=== PATIENT | male | born 1980 | race Hispanic/Latino ===

== ENCOUNTER 2018-10-21 19:11 | Emergency (ER) | payer SELFPAY ==
[2018-10-21] MEDS ORDERED: Catapres 0.1 MG PO ONE (20:10)
[2018-10-21] MEDS ORDERED: Catapres 0.1 MG ONE (20:16)
[2018-10-21] MEDS ORDERED: LASIX 20 MG ONE (20:20)
[2018-10-21 20:33] VITALS: BP 168/101; O2SAT 98
--- NOTE | 2018-10-21 20:43 | ERPHSYRPT ---
- History of Present Illness Time Seen by Provider: 10/21/18 19:30 Source: patient Exam Limitations: language barrier Patient Subjective Stated Complaint: pt is alert and oriented. pt is ambulatory with a steady gait. pt comes in with bilat lower leg swelling for 1 week. pt has moderate swelling of the bilat lower legs. pt had labs earlier today and had an abnormal BUN and Creat. pt speaks only japanese, Dr. Andrews translating for me. Triage Nursing Assessment: see above Physician History: 37 y/o a[place]ij[place] national male here on a work visa presents with worsening swelling bilat lower ext. he has never had before. he is taking ampicillin for an infection. no other meds. nkda. pt has no known h/o heart or kidney dz. he denies soa, denies cp and denies abd pain. Timing/Duration: week(s) (1) Severity: moderate Associated Symptoms: denies symptoms, No nausea, No vomiting, No abdominal pain , No shortness of breath, No chest pain, No syncope, No seizure, No weakness Allergies/Adverse Reactions: No Known Drug Allergies Allergy (Verified 10/21/18 20:17) Immunizations Up to Date: Yes - Review of Systems Constitutional: No Symptoms Eyes: No Symptoms Ears, Nose, & Throat: No Symptoms Respiratory: No Symptoms Cardiac: No Symptoms Abdominal/Gastrointestinal: No Symptoms Genitourinary Symptoms: No Symptoms Musculoskeletal: Other (swelling bilat lower ext) Skin: No Symptoms Neurological: No Symptoms Psychological: No Symptoms Endocrine: No Symptoms Hematologic/Lymphatic: No Symptoms Immunological/Allergic: No Symptoms All Other Systems: Reviewed and Negative - Past Medical History Pertinent Past Medical History: Yes Neurological History: No Pertinent History ENT History: No Pertinent History Cardiac History: No Pertinent History Respiratory History: No Pertinent History Endocrine Medical History: No Pertinent History Musculoskeletal History: No Pertinent History GI Medical History: No Pertinent History History: No Pertinent History Psycho-Social History: No Pertinent History Male Reproductive Disorders: No Pertinent History - Past Surgical History Past Surgical History: No Neuro Surgical History: No Pertinent History Cardiac: No Pertinent History Respiratory: No Pertinent History Gastrointestinal: No Pertinent History Genitourinary: No Pertinent History Musculoskeletal: No Pertinent History Male Surgical History: No Pertinent History - Social History Smoking Status: Light tobacco smoker Alcohol Use: None Drug Use: none Significant Family History: no pertinent family hx - Nursing Vital Signs Nursing Vital Signs: Initial Vital Signs Pulse Rate 58 L 05/03/19 19:36 Respiratory Rate 18 10/21/18 19:36 Blood Pressure 160/102 10/21/18 19:36 O2 Sat by Pulse Oximetry 97 10/21/18 19:36 - Physical Exam General Appearance: no apparent distress, alert, anxiety Eye Exam: PERRL/EOMI Ears, Nose, Throat Exam: normal ENT inspection, moist mucous membranes Neck Exam: normal inspection, non-tender, supple, full range of motion Respiratory Exam: normal breath sounds, lungs clear, airway intact, No chest tenderness, No respiratory distress Cardiovascular Exam: regular rate/rhythm, normal heart sounds, normal peripheral pulses Gastrointestinal/Abdomen Exam: soft, normal bowel sounds, No tenderness Rectal Exam: not done Back Exam: normal inspection, normal range of motion, No CVA tenderness, No vertebral tenderness Extremity Exam: pedal edema (bilal lower ext to bilat knees), swelling, No tenderness Neurologic Exam: alert, oriented x 3, cooperative, 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 Skin Exam: normal color, warm, dry Lymphatic Exam: adenopathy SpO2 Interpretation: normal SpO2: 98 O2 Delivery: Room Air - Course Nursing assessment & vital signs reviewed: Yes Ordered Tests: Medication Summary Generic Name Dose Route Start Last Admin Trade Name Freq PRN Reason Stop Dose Admin Furosemide 20 mg 10/22/18 20:10 10/21/18 20:29 Lasix 20 Mg PO 10/22/18 20:11 20 mg STAT ONE Administration Discontinued Medications Generic Name Dose Route Start Last Admin Trade Name Freq PRN Reason Stop Dose Admin Clonidine 0.1 mg 10/21/18 20:10 10/21/18 20:29 Catapres 0.1 Mg PO 10/21/18 20:11 0.1 mg STAT ONE Administration Clonidine Confirm 10/21/18 20:16 Catapres 0.1 Mg Administered 10/21/18 20:17 Dose 0.1 mg .ROUTE .STK-MED ONE Furosemide Confirm 10/21/18 20:20 Lasix 20 Mg Administered 10/21/18 20:21 Dose 20 mg .ROUTE .STK-MED ONE - Progress Progress: unchanged Counseled pt/family regarding: lab results, diagnosis, need for follow-up - Departure Departure Disposition: Home Clinical Impression: Hypertension, Renal insufficiency Condition: Stable Critical Care Time: No Referrals: DOCTOR,NO FAMILY [Primary Care Provider] - Additional Instructions: follow up with outpatient physician within next week. drink more water. take medications as prescribed. Prescriptions: Hydrochlorothiazide 25 mg [hydroDIURIL 25 MG] 25 mg PO DAILY #14 tablet
[2018-10-21 20:52] VITALS: PULSE 57
[2018-10-22] MEDS ORDERED: LASIX 20 MG PO ONE (20:10)
== END 2018-10-21 21:04 | disposition home or self-care (01) ==
LOC: ED 19:11
DX: I10 Essential (primary) hypertension (principal); N28.9 Disorder of kidney and ureter, unspecified
CPT/HCPCS: 99283; A9270-GY

== ENCOUNTER 2018-10-26 13:23 | Emergency (ER) | payer SELFPAY ==
[2018-10-26 14:12] LABS: BASOPHIL % 0.5 % (0.0-0.4); Basophil (Absolute #) 0.04 (0-0.4); Eosinophil % 1.8 % (0.00-5.0); Eosinophil (Absolute #) 0.14 (0-0.5); Granulocyte Absolute (ANC) 4.63 (1.4-6.9); Granulocytes % 58.5 % (36.0-66.0); Hematocrit 42.3 % (42-50); Hemoglobin 14.5 gm/dl (12.5-18.0); Lymphocyte (Absolute #) 2.41 (1.0-4.6); Lymphocytes % 30.4 % (24.0-44.0); Mean Cell Volume 90.6 fl (78-100); Mean Corpuscular Hgb Concent. 34.3 g/dl (32-36); Mean Platelet Volume 11.3 fl (6-9.5); Monocytes % 8.8 % (0.0-12.0); Platelet Count 423 K/mm3 (150-450); Red Blood Count 4.67 M/mm3 (4.1-5.6); Red Cell Distribution Width 15.4 % (11.5-14.0); White Blood Count 7.9 K/mm3 (4.0-10.5)
[2018-10-26 14:45] LABS: ALBUMIN 2.3 g/dL (3.5-5.0); ALKALINE PHOSPHATASE 74 U/L (38-126); ANION GAP 4.9 MEQ/L (5-15); BLOOD UREA NITROGEN 15 mg/dL (9-20); CHLORIDE 100 mmol/L (98-107); Calcium 8.4 mg/dL (8.4-10.2); Carbon Dioxide 32 mmol/L (22-30); Creatinine 1 1.19 mg/dL (0.66-1.25); Glucose 96 mg/dL (74-106); NT PRO BNP 378 pg/mL (0-450); Potassium 3.9 mmol/L (3.5-5.1); SGOT/AST 44 U/L (17-59); SGPT/ALT 27 U/L (0-50); SODIUM 133 mmol/L (137-145); Total Protein 5.6 g/dL (6.3-8.2)
[2018-10-26 14:53] LABS: Appearance CLEAR (CLEAR); Bilirubin NEGATIVE (NEGATIVE); Blood SMALL Ery/ul (0-5); Glucose 150 mg/dL (NEGATIVE); Ketones NEGATIVE (NEGATIVE); Leukocyte Esterase NEGATIVE (NEGATIVE); Mucus SLIGHT /HPF (NEGATIVE); Nitrite NEGATIVE (NEGATIVE); Protein,Urine Dip 100 (Negative); Specific Gravity 1.005 (1.005-1.025); Urobilinogen NEGATIVE mg/dL (0-1)
[2018-10-26 15:13] LABS: Slide Review 1 YES
[2018-10-26] MEDS ORDERED: Lasix 40 MG/4 ML IV ONE (15:38)
[2018-10-26] MEDS ORDERED: Lasix 40 MG/4 ML ONE (16:29)
--- NOTE | 2018-10-26 16:35 | XRAY ---
Indication: Elevated d-dimer. 2-dimensional sonogram and color Doppler imaging of the major venous vessels of the left and right leg was performed. Comparison: None No thrombus seen in the examined deep venous vessels of the left and right leg including greater saphenous vein. Veins demonstrate normal compressibility. Venous waveforms are normal with and without augmentation. Impression: Left and right legs negative for DVT.
[2018-10-26 17:09] VITALS: O2SAT 98
[2018-10-26 17:11] VITALS: BP 146/85; PULSE 60
--- NOTE | 2018-10-26 17:25 | ERPHSYRPT ---
- History of Present Illness Source: patient Exam Limitations: other (Speaks Cameroonian only) Patient Subjective Stated Complaint: Bilateral lower extremities swollen Triage Nursing Assessment: Pt brought by mary and is unable to speak sudanese, mary reports that the pt was here on 10/21 for swelling in his bilateral lower extremities as the same as today, pt is to be going back to [place] in a few days and will be on a bus for approx 3 days, hypertensive, pulses normal, doesn' t appear to be in any distress Physician History: Pt is a 37 y/o male that was brought to the hospital, by his employer, as he has severe swelling of B/L LEs with pitting edema. Pt was in the hospital a week ago, was placed on HCTZ, and was using Lisinopril, with elevated sCr in the 2.0 range. Pt denies dysuria, frequency or urgency. No F/C/S. No chest pain or palpitations. No N/V/D or abdominal pain. Translation services were used all through pt's encounter, as he can't speak Greek at all. Timing/Duration: week(s) Severity: moderate Modifying Factors: Improves With: nothing Associated Symptoms: denies symptoms Allergies/Adverse Reactions: No Known Drug Allergies Allergy (Verified 10/21/18 20:17) - Review of Systems Constitutional: No Fever, No Chills Eyes: No Symptoms Ears, Nose, & Throat: No Symptoms Respiratory: No Cough, No Dyspnea Cardiac: Edema (Pitting in LEs), No Chest Pain, No Syncope Abdominal/Gastrointestinal: No Abdominal Pain, No Nausea, No Vomiting, No Diarrhea Genitourinary Symptoms: No Dysuria Musculoskeletal: No Back Pain, No Neck Pain Neurological: No Dizziness, No Focal Weakness, No Sensory Changes - Past Medical History Pertinent Past Medical History: No Neurological History: No Pertinent History ENT History: No Pertinent History Cardiac History: No Pertinent History Respiratory History: No Pertinent History Endocrine Medical History: No Pertinent History Musculoskeletal History: No Pertinent History GI Medical History: No Pertinent History History: No Pertinent History Psycho-Social History: No Pertinent History Male Reproductive Disorders: No Pertinent History - Past Surgical History Past Surgical History: No Neuro Surgical History: No Pertinent History Cardiac: No Pertinent History Respiratory: No Pertinent History Gastrointestinal: No Pertinent History Genitourinary: No Pertinent History Musculoskeletal: No Pertinent History Male Surgical History: No Pertinent History - Social History Smoking Status: Light tobacco smoker Exposure to second hand smoke: Yes Alcohol Use: None Drug Use: none Patient Lives Alone: No Significant Family History: no pertinent family hx - Nursing Vital Signs Nursing Vital Signs: Initial Vital Signs Temperature 97.9 F 10/26/18 13:28 Pulse Rate 60 10/26/18 13:28 Blood Pressure 153/99 10/26/18 13:28 O2 Sat by Pulse Oximetry 99 10/26/18 13:28 Pain Scale Pain Intensity 0 - Physical Exam General Appearance: no apparent distress, alert Eye Exam: PERRL/EOMI, eyes nml inspection Ears, Nose, Throat Exam: normal ENT inspection, TMs normal, pharynx normal, moist mucous membranes Neck Exam: normal inspection, non-tender, supple, full range of motion Respiratory Exam: normal breath sounds, lungs clear, No respiratory distress Cardiovascular Exam: regular rate/rhythm, murmur (Sounds best at upper sternal border), edema (Pitting, up to knees +3) Gastrointestinal/Abdomen Exam: soft, normal bowel sounds, No tenderness, No mass Back Exam: normal inspection, normal range of motion, No CVA tenderness, No vertebral tenderness Extremity Exam: normal inspection, normal range of motion, pelvis stable Neurologic Exam: alert, oriented x 3, cooperative, normal mood/affect, nml cerebellar function, nml station & gait, sensation nml, No motor deficits SpO2: 98 - Course Nursing assessment & vital signs reviewed: Yes Ordered Tests: Active Orders 24 hr Category Date Time Status VENOUS BILATERAL EXTREMITY [US] Stat Exams 10/26/18 14:48 Completed CBC W DIFF Stat Lab 10/26/18 14:11 Completed CMP Stat Lab 10/26/18 14:11 Completed D-DIMER QUANTITATION Stat Lab 10/26/18 14:11 Completed NT PRO BNP Stat Lab 10/26/18 14:11 Completed TROPONIN Q3H Lab 10/26/18 14:11 Completed TROPONIN Q3H Lab 10/26/18 17:00 Ordered TROPONIN Q3H Lab 10/26/18 20:00 Ordered TROPONIN Q3H Lab 10/26/18 23:00 Ordered TROPONIN Q3H Lab 10/27/18 02:00 Ordered UA W/RFX UR CULTURE Stat Lab 10/26/18 14:31 Completed Medication Summary Discontinued Medications Generic Name Dose Route Start Last Admin Trade Name Freq PRN Reason Stop Dose Admin Furosemide 40 mg 10/26/18 15:38 10/26/18 16:33 Lasix 40 Mg/4 Ml IV 10/26/18 15:39 40 mg STAT ONE Administration Furosemide Confirm 10/26/18 16:29 Lasix 40 Mg/4 Ml Administered 10/26/18 16:30 Dose 40 mg .ROUTE .STK-MED ONE Lab/Rad Data: Laboratory Result Diagrams 10/26/18 14:11 10/26/18 14:11 Laboratory Results 10/26/18 10/26/18 10/26/18 Range/Units 14:31 14:11 14:11 WBC (4.0-10.5) K/mm3 RBC (4.1-5.6) M/mm3 Hgb (12.5-18.0) gm/dl Hct (42-50) % MCV (78-100) fl MCH (26-32) pg MCHC (32-36) g/dl RDW (11.5-14.0) % Plt Count (150-450) K/mm3 MPV (6-9.5) fl Gran % (36.0-66.0) % Eos # (Auto) (0-0.5) Absolute Lymphs (auto) (1.0-4.6) Absolute Monos (auto) (0.0-1.3) Lymphocytes % (24.0-44.0) % Monocytes % (0.0-12.0) % Eosinophils % (0.00-5.0) % Basophils % (0.0-0.4) % Absolute Granulocytes (1.4-6.9) Basophils # (0-0.4) D-Dimer 1121 H* (215-500) ng/mL Sodium (137-145) mmol/L Potassium (3.5-5.1) mmol/L Chloride (98-107) mmol/L Carbon Dioxide (22-30) mmol/L Anion Gap (5-15) MEQ/L BUN (9-20) mg/dL Creatinine (0.66-1.25) mg/dL Estimated GFR ML/MIN Glucose (74-106) mg/dL Calcium (8.4-10.2) mg/dL Total Bilirubin (0.2-1.3) mg/dL AST (17-59) U/L ALT (0-50) U/L Alkaline Phosphatase (38-126) U/L Troponin I < 0.012 (0.000-0.034) ng/mL NT-Pro-B Natriuret Pep (0-450) pg/mL Serum Total Protein (6.3-8.2) g/dL Albumin (3.5-5.0) g/dL Urine Color STRAW (YELLOW) Urine Appearance CLEAR (CLEAR) Urine pH 8.0 (5-6) Ur Specific Fletcher 1.005 (1.005-1.025) Urine Protein 100 (Negative) Urine Ketones NEGATIVE (NEGATIVE) Urine Blood SMALL (0-5) Ken/ul Urine Nitrite NEGATIVE (NEGATIVE) Urine Bilirubin NEGATIVE (NEGATIVE) Urine Urobilinogen NEGATIVE (0-1) mg/dL Ur Leukocyte Esterase NEGATIVE (NEGATIVE) Urine WBC (Auto) NONE (0-5) /HPF Urine RBC (Auto) NONE (0-2) /HPF U Epithel Cells (Auto) NONE (FEW) /HPF Urine Bacteria (Auto) NONE (NEGATIVE) /HPF Urine Mucus (Auto) SLIGHT (NEGATIVE) /HPF Urine Culture Reflexed NO (NO) Urine Glucose 150 (NEGATIVE) mg/dL Slides for Path Review 10/26/18 10/26/18 Range/Units 14:11 14:11 WBC 7.9 (4.0-10.5) K/mm3 RBC 4.67 (4.1-5.6) M/mm3 Hgb 14.5 (12.5-18.0) gm/dl Hct 42.3 (42-50) % MCV 90.6 (78-100) fl MCH 31.0 (26-32) pg MCHC 34.3 (32-36) g/dl RDW 15.4 H (11.5-14.0) % Plt Count 423 (150-450) K/mm3 MPV 11.3 H (6-9.5) fl Gran % 58.5 (36.0-66.0) % Eos # (Auto) 0.14 (0-0.5) Absolute Lymphs (auto) 2.41 (1.0-4.6) Absolute Monos (auto) 0.70 (0.0-1.3) Lymphocytes % 30.4 (24.0-44.0) % Monocytes % 8.8 (0.0-12.0) % Eosinophils % 1.8 (0.00-5.0) % Basophils % 0.5 (0.0-0.4) % Absolute Granulocytes 4.63 (1.4-6.9) Basophils # 0.04 (0-0.4) D-Dimer (215-500) ng/mL Sodium 133 L (137-145) mmol/L Potassium 3.9 (3.5-5.1) mmol/L Chloride 100 (98-107) mmol/L Carbon Dioxide 32 H (22-30) mmol/L Anion Gap 4.9 L (5-15) MEQ/L BUN 15 (9-20) mg/dL Creatinine 1.19 (0.66-1.25) mg/dL Estimated GFR > 60.0 ML/MIN Glucose 96 (74-106) mg/dL Calcium 8.4 (8.4-10.2) mg/dL Total Bilirubin 0.20 (0.2-1.3) mg/dL AST 44 (17-59) U/L ALT 27 (0-50) U/L Alkaline Phosphatase 74 (38-126) U/L Troponin I (0.000-0.034) ng/mL NT-Pro-B Natriuret Pep 378 (0-450) pg/mL Serum Total Protein 5.6 L (6.3-8.2) g/dL Albumin 2.3 L (3.5-5.0) g/dL Urine Color (YELLOW) Urine Appearance (CLEAR) Urine pH (5-6) Ur Specific Fletcher (1.005-1.025) Urine Protein (Negative) Urine Ketones (NEGATIVE) Urine Blood (0-5) Ken/ul Urine Nitrite (NEGATIVE) Urine Bilirubin (NEGATIVE) Urine Urobilinogen (0-1) mg/dL Ur Leukocyte Esterase (NEGATIVE) Urine WBC (Auto) (0-5) /HPF Urine RBC (Auto) (0-2) /HPF U Epithel Cells (Auto) (FEW) /HPF Urine Bacteria (Auto) (NEGATIVE) /HPF Urine Mucus (Auto) (NEGATIVE) /HPF Urine Culture Reflexed (NO) Urine Glucose (NEGATIVE) mg/dL Slides for Path Review YES - Progress Progress: improved Progress Note: 10/26/18 17:26 Pt was seen and examined. Translation services were used to communicate with the pt and make sure all is understood. Pt had lab work that showed increase in pro BNP, and pt had a systolic murmur. Kidney function improved from a week ago, but pt did have protein in the urine. Lasix 40mg IV given once, and pt did urinate a large amount of urine. DVTs were r/o in b/l LEs, as D Dimer was elevated, and I wanted to make sure he does not have a clot. I suggested the pt be transferred to [facility], so Cardiology and Nephrology will be able to evaluate him and r/o cardiac and nephrotic syndrome. Pt refused the transfer and wants to be treated in [place]. I explained to the pt how dangerous it is for him, especially with the long drive to [place], but he refused any transfer, and wants to be d/c to home, and go to [place]. Pt understands that the hospital and providers will not be liable to his condition, secondary to his refusable for transfer and treatment, as appropriate. Will see patient in: office Counseled pt/family regarding: need for follow-up - Departure Departure Disposition: Home Clinical Impression: Proteinuria of undiagnosed cause Condition: Stable Critical Care Time: No Referrals: DOCTOR,NO FAMILY [Primary Care Provider] - Additional Instructions: F/U with Cardiology and Nephrology [facility], for evaluation.
== END 2018-10-26 17:39 | disposition home or self-care (01) ==
LOC: ED 13:23
DX: R80.9 Proteinuria, unspecified (principal)
CPT/HCPCS: 36000; 36415; 80053; 81001; 83880; 84484; 85025; 85379; 93970; 96374; 99284; J1940